=== PATIENT | male | born 1950 | race Caucasian/White ===

== ENCOUNTER 2016-12-22 11:09 | Day surgery (SDC) | payer OTHER ==
[~2016-12-22] VITALS: Ht 177.8 cm; Wt 72.6 kg
[~2016-12-22 11:09] MED LIST: AVALIDE 150/1 TABLET PO; DICLOFENAC SOD100 G1 TP; ESOMEPRAZOLE MA40 MG PO
[2016-12-22 12:29] VITALS: BP 155/85
[2016-12-22] MEDS ORDERED: NORCO 5/3251 TABLET PO (13:50)
[2016-12-22 15:00] VITALS: BP 134/88
[2016-12-22 16:10] VITALS: BP 140/77
== END 2016-12-22 16:18 | disposition home or self-care (01) ==
LOC: SDC 11:09
PROC: 0FT44ZZ Resection of Gallbladder, Percutaneous Endoscopic Approach (ICD-10-PCS; principal; 2016-12-22)
DX: K81.1 Chronic cholecystitis (principal); K82.8 Other specified diseases of gallbladder; K21.9 Gastro-esophageal reflux disease without esophagitis; K27.9 Peptic ulcer, site unspecified, unspecified as acute or chronic, without hemorrhage or perforation; Z85.828 Personal history of other malignant neoplasm of skin; Z82.49 Family history of ischemic heart disease and other diseases of the circulatory system; Z80.42 Family history of malignant neoplasm of prostate
CPT/HCPCS: 88304; J0690; J1100; J1170; J1885; J2250; J2405; J2710; J3010